=== PATIENT | male | born 1975 | race Caucasian/White ===

== ENCOUNTER 2019-10-07 16:33 | Inpatient (IN) ==
[2019-10-07] MEDS ORDERED: Piperacillin/Tazobactam 3.375 GM in Water for inj. (sterile) 20 ML IVP ONE (16:50)
[2019-10-07] MEDS ORDERED: 0.9 % Sodium Chloride 1,000 ML IVC ONE (16:50)
[2019-10-07] MEDS ORDERED: Morphine Sulfate 2 MG/ML SYRINGE IVP ONE (17:19)
[2019-10-07 17:20] LABS: Basophils # 0.1 K/mcL (0.0-0.2); Basophils % 0.7 %; Eosinophils # 0.2 K/mcL (0.0-0.6); Hematocrit 41.9 % (37.5-50.1); Hemoglobin 14.1 g/dL (12.9-16.9); Immature Granulocytes % 1.1 % (0-4); Lymphocytes # 2.1 K/mcL (0.6-4.6); Mean Corpuscular HGB Conc 33.7 g/dL (31.6-35.5); Mean Corpuscular Hemoglobin 28.3 pg (28.0-33.3); Mean Corpuscular Volume 84.1 fL (83.0-100.0); Mean Platelet Volume 10.5 fL (9.4-12.4); Monocytes # 0.9 K/mcL (0.0-1.3); Monocytes % 11.9 %; Neutrophils # 4.2 K/mcL (1.6-8.9); Platelet Count 248 K/mcL (140-400); Red Blood Count 4.98 M/mcL (4.19-5.50); Segmented Neutrophils % 55.3 %; White Blood Count 7.6 K/mcL (4.3-11.1)
[2019-10-07 17:23] LABS: INR 1.2
[2019-10-07 17:26] LABS: Activated Partial Thrombo Time 29.2 Seconds (26.0-36.0)
[2019-10-07 17:40] LABS: Alanine Aminotransferase 20 Units/L (7-52); Albumin 3.5 g/dL (3.5-5.7); Albumin/Globulin Ratio 1.3 (1.1-2.2); Alkaline Phosphatase 105 Units/L (34-104); Aspartate Amino Transferase 15 Units/L (13-39); BUN/Creatinine Ratio 17 (6-26); Bilirubin,Direct 0.1 mg/dL (0.0-0.2); Bilirubin,Indirect 0.5 mg/dL (0.0-1.0); Bilirubin,Total 0.6 mg/dL (0.3-1.0); Blood Urea Nitrogen 16 mg/dL (6-20); Calcium 8.5 mg/dL (8.6-10.3); Carbon Dioxide 22 mEq/L (23-29); Chloride 102 mEq/L (98-107); Globulin 2.6 g/dL (2.4-3.5); Glucose 512 mg/dL (70-105); Osmolality,Calculated 298 (280-300); Potassium 3.8 mEq/L (3.5-5.1); Sodium 132 mEq/L (136-145); Total Protein 6.1 g/dL (6.4-8.9); eGFR For African Americans > 60 (> 60); eGFR For Non-African Americans > 60 (> 60)
[2019-10-07] MEDS ORDERED: Insulin Human Regular 10 UNIT in 0.9 % Sodium Chloride 10 ML IV ONE (17:45)
[2019-10-07] MEDS ORDERED: Naloxone 0.4 MG/ML INJ IVP PRN ×2 (18:11→23:35)
[2019-10-07] MEDS ORDERED: Ondansetron 4 MG/2 ML VIAL IVP PRN ×2 (18:11→23:35)
[2019-10-07] MEDS ORDERED: Ringers Solution, Lactated 1,000 ML IVC SCH (18:15)
[2019-10-07] MEDS ORDERED: Dextrose Gel 15 GM/37.5 ML TUBE PO PRN ×2 (18:15→23:35)
[2019-10-07] MEDS ORDERED: D5% in Water 1,000 ML IVC PRN ×2 (18:15→23:35)
[2019-10-07] MEDS ORDERED: *HR* Dextrose 50 % in Water (Syg) 50 ML SYRINGE IVP PRN ×2 (18:15→23:35)
[2019-10-07] MEDS ORDERED: Insulin LISPRO 300 UNITS/3 ML VIAL SQ SCH (20:00)
[2019-10-07] MEDS ORDERED: *HR* Propofol 200 MG/20 ML VIAL IVP ONE (20:43)
[2019-10-07] MEDS ORDERED: *HR* FentaNYL (PF) 100 MCG/2 ML VIAL ONE (20:49)
[2019-10-07] MEDS ORDERED: Ondansetron 4 MG/2 ML VIAL ONE (20:50)
[2019-10-07] MEDS ORDERED: Lidocaine -MPF 2% 2 ML VIAL ONE (20:50)
[2019-10-07] MEDS ORDERED: Dexamethasone 4 MG/ML VIAL ONE (20:50)
[2019-10-07] MEDS ORDERED: Insulin DETEMIR 100 UNIT/ML X5UNITS SQ SCH (21:00)
[2019-10-07] MEDS ORDERED: *HR* OxyCODONE Immed Rel 5 MG TABLET PO PRN (21:15)
[2019-10-07] MEDS ORDERED: Ondansetron 4 MG/2 ML VIAL IVP ONE (21:15)
[2019-10-07] MEDS ORDERED: *HR* HYDROmorphone PF 0.5 MG/0.5 ML SYRINGE IVP PRN (21:15)
[2019-10-07] MEDS ORDERED: *HR* Labetalol 20 MG/4 ML SYRINGE IVP PRN (21:15)
[2019-10-07] MEDS ORDERED: Acetaminophen IV 1,000 MG/100 ML INFUS..BTL ONE (21:23)
[2019-10-07] MEDS ORDERED: Famotidine 20 MG/2 ML VIAL ONE (21:23)
[2019-10-07] MEDS ORDERED: Bupivacaine/EPI 1:200k 0.5%PF 30 ML VIAL ONE (21:43)
[2019-10-07] MEDS ORDERED: *HR* Succinylcholine 200 MG/10 ML VIAL IVP ONE (21:46)
[2019-10-07] MEDS ORDERED: Lidocaine HCL 4 ML Topical Solution (Laryng-O-Jet Kit Sterile Pak) TP ONE (21:47)
[2019-10-07] MEDS ORDERED: Ketorolac 30 MG/ML VIAL ONE (21:48)
[2019-10-07] MEDS ORDERED: *HR* Heparin 5,000 UNIT/ML VIAL SQ SCH (22:00)
[2019-10-08] MEDS ORDERED: Piperacillin/Tazobactam 3.375 GM in 0.9 % Sodium Chloride Mini Bag 100 ML IVPB SCH
[2019-10-08] MEDS: Insulin LISPRO 300 UNITS/3 ML VIAL SQ SCH ×6 (00:24→21:54)
[2019-10-08] MEDS: Piperacillin/Tazobactam 3.375 GM in 0.9 % Sodium Chloride Mini Bag 100 ML IVPB SCH ×3 (00:24→16:50)
[2019-10-08 03:00] LABS: Basophils % 0.4 %; Eosinophils # 0.1 K/mcL (0.0-0.6); Eosinophils % 0.7 %; Hematocrit 41.1 % (37.5-50.1); Hemoglobin 13.7 g/dL (12.9-16.9); Immature Granulocytes % 0.9 % (0-4); Lymphocytes # 1.2 K/mcL (0.6-4.6); Lymphocytes % 16.9 %; Mean Corpuscular HGB Conc 33.3 g/dL (31.6-35.5); Mean Corpuscular Hemoglobin 28.1 pg (28.0-33.3); Mean Corpuscular Volume 84.4 fL (83.0-100.0); Monocytes # 0.2 K/mcL (0.0-1.3); Monocytes % 3.4 %; Neutrophils # 5.5 K/mcL (1.6-8.9); Platelet Count 238 K/mcL (140-400); Red Blood Count 4.87 M/mcL (4.19-5.50); Segmented Neutrophils % 77.7 %
[2019-10-08 03:19] LABS: Alanine Aminotransferase 19 Units/L (7-52); Albumin 3.4 g/dL (3.5-5.7); Albumin/Globulin Ratio 1.3 (1.1-2.2); Alkaline Phosphatase 98 Units/L (34-104); Aspartate Amino Transferase 14 Units/L (13-39); BUN/Creatinine Ratio 16 (6-26); Bilirubin,Total 0.5 mg/dL (0.3-1.0); Blood Urea Nitrogen 16 mg/dL (6-20); Calcium 8.5 mg/dL (8.6-10.3); Carbon Dioxide 22 mEq/L (23-29); Chloride 107 mEq/L (98-107); Chol/HDL Ratio 5.4 (0-4.9); Cholesterol 129 mg/dL (< 200); Globulin 2.6 g/dL (2.4-3.5); Glucose 273 mg/dL (70-105); HDL Cholesterol 24 mg/dL (40-59); LDL Cholesterol,Calculated 68 mg/dL (0-99); Magnesium 1.8 mg/dL (1.6-2.6); Osmolality,Calculated 295 (280-300); Potassium 4.2 mEq/L (3.5-5.1); Sodium 137 mEq/L (136-145); Triglycerides 185 mg/dL (< 150); eGFR For African Americans > 60 (> 60); eGFR For Non-African Americans > 60 (> 60)
[2019-10-08 03:35] LABS: INR 1.2; Prothrombin Time 13.7 Seconds (9.4-12.1)
[2019-10-08] MEDS: Ringers Solution, Lactated 1,000 ML IVC SCH (03:49)
[2019-10-08] MEDS: *HR* Heparin 5,000 UNIT/ML VIAL SQ SCH ×3 (05:02→21:54)
[2019-10-08 08:56] LABS: Estimated Average Glucose 372 mg/dl
[2019-10-08] MEDS: OLANZapine 10 MG TAB.RAPDIS PO SCH ×2 (10:21→21:52)
[2019-10-08] MEDS: FLUoxetine 20 MG CAPSULE PO SCH (10:22)
[2019-10-08] MEDS: hydrOXYzine pamoate 25 MG CAPSULE PO SCH ×2 (14:50→21:51)
[2019-10-08] MEDS ORDERED: Insulin DETEMIR 100 UNIT/ML X5UNITS SQ SCH (21:00)
[2019-10-08] MEDS: Perphenazine 8 MG TABLET PO SCH (21:52)
[2019-10-08] MEDS: Insulin DETEMIR 100 UNIT/ML X5UNITS SQ SCH (21:55)
[2019-10-09] MEDS: Piperacillin/Tazobactam 3.375 GM in 0.9 % Sodium Chloride Mini Bag 100 ML IVPB SCH ×3 (00:34→16:06)
[2019-10-09] MEDS: *HR* Heparin 5,000 UNIT/ML VIAL SQ SCH ×3 (05:54→21:57)
[2019-10-09 07:01] LABS: Basophils % 0.5 %; Eosinophils # 0.1 K/mcL (0.0-0.6); Eosinophils % 1.6 %; Immature Granulocytes % 0.9 % (0-4); Lymphocytes # 2.2 K/mcL (0.6-4.6); Lymphocytes % 27.1 %; Mean Corpuscular HGB Conc 33.3 g/dL (31.6-35.5); Mean Corpuscular Hemoglobin 28.3 pg (28.0-33.3); Mean Corpuscular Volume 84.8 fL (83.0-100.0); Mean Platelet Volume 9.7 fL (9.4-12.4); Monocytes # 0.9 K/mcL (0.0-1.3); Monocytes % 10.6 %; Neutrophils # 4.8 K/mcL (1.6-8.9); Platelet Count 206 K/mcL (140-400); Segmented Neutrophils % 59.3 %; White Blood Count 8.1 K/mcL (4.3-11.1)
[2019-10-09 07:23] LABS: Calcium 8.5 mg/dL (8.6-10.3); Potassium 3.4 mEq/L (3.5-5.1)
[2019-10-09] MEDS: hydrOXYzine pamoate 25 MG CAPSULE PO SCH ×3 (08:06→20:46)
[2019-10-09] MEDS: OLANZapine 10 MG TAB.RAPDIS PO SCH ×2 (08:06→20:47)
[2019-10-09] MEDS: amLODIPine 5 MG TABLET PO SCH (08:06)
[2019-10-09] MEDS: FLUoxetine 20 MG CAPSULE PO SCH (08:06)
[2019-10-09] MEDS: Perphenazine 8 MG TABLET PO SCH ×2 (08:07→20:46)
[2019-10-09] MEDS: Insulin LISPRO 300 UNITS/3 ML VIAL SQ SCH ×4 (08:07→20:49)
[2019-10-09] MEDS ORDERED: D5% in Lactated Ringers 1,000 ML IVC SCH (08:15)
[2019-10-09] MEDS: 0.9 % Sodium Chloride 1,000 ML IVC SCH ×3 (09:54→21:58)
[2019-10-09] MEDS: Ringers Solution, Lactated 1,000 ML IVC SCH (11:21)
[2019-10-09] MEDS: Insulin DETEMIR 100 UNIT/ML X5UNITS SQ SCH (20:49)
[2019-10-10] MEDS: Piperacillin/Tazobactam 3.375 GM in 0.9 % Sodium Chloride Mini Bag 100 ML IVPB SCH ×4 (00:11→23:32)
[2019-10-10 03:15] LABS: Calcium 8.3 mg/dL (8.6-10.3); Potassium 3.5 mEq/L (3.5-5.1)
[2019-10-10] MEDS: 0.9 % Sodium Chloride 1,000 ML IVC SCH ×5 (03:50→23:30)
[2019-10-10] MEDS: *HR* Heparin 5,000 UNIT/ML VIAL SQ SCH ×3 (06:01→21:41)
[2019-10-10] MEDS: hydrOXYzine pamoate 25 MG CAPSULE PO SCH ×3 (07:57→21:40)
[2019-10-10] MEDS: amLODIPine 5 MG TABLET PO SCH (07:57)
[2019-10-10] MEDS: Perphenazine 8 MG TABLET PO SCH ×2 (07:57→21:41)
[2019-10-10] MEDS: FLUoxetine 20 MG CAPSULE PO SCH (07:57)
[2019-10-10] MEDS: OLANZapine 10 MG TAB.RAPDIS PO SCH ×2 (07:57→21:40)
[2019-10-10] MEDS: Insulin LISPRO 300 UNITS/3 ML VIAL SQ SCH ×4 (07:58→21:42)
[2019-10-10] MEDS ORDERED: Aminoglycoside Consult 1 EACH MC ONE (08:23)
[2019-10-10 14:40] LABS: Protein/Creatinine Ratio,Urine 0.53 mg/mg (0.00-0.20); Sodium, Urine 44.1 mEq/L
[2019-10-10 14:51] LABS: Bilirubin,Urine Negative (Negative); Blood,Urine Negative (Negative); Clarity,Urine Clear (Clear); Color,Urine Yellow (Yellow); Glucose,Urine (UA) Normal (Normal); Ketones,Urine Negative (Negative); Leukocyte Esterase,Urine Negative (Negative); Nitrite,Urine Negative (Negative); Protein,Urine Trace mg/dL (Neg-Trace); Specific Gravity,Urine 1.008 (1.010-1.025); Urobilinogen,Urine Normal (Normal)
[2019-10-10] MEDS: Insulin DETEMIR 100 UNIT/ML X5UNITS SQ SCH (21:41)
[2019-10-11 02:05] LABS: Albumin 2.8 g/dL (3.5-5.7); Phosphorous 6.8 mg/dL (2.7-4.5); Potassium 4.1 mEq/L (3.5-5.1)
[2019-10-11 02:07] LABS: Calcium 7.9 mg/dL (8.6-10.3); Potassium 4.1 mEq/L (3.5-5.1)
[2019-10-11] MEDS: 0.9 % Sodium Chloride 1,000 ML IVC SCH ×3 (06:08→20:08)
[2019-10-11] MEDS: *HR* Heparin 5,000 UNIT/ML VIAL SQ SCH ×3 (06:08→20:39)
[2019-10-11] MEDS: OLANZapine 10 MG TAB.RAPDIS PO SCH ×2 (08:44→20:39)
[2019-10-11] MEDS: hydrOXYzine pamoate 25 MG CAPSULE PO SCH ×3 (08:44→20:39)
[2019-10-11] MEDS: Piperacillin/Tazobactam 3.375 GM in 0.9 % Sodium Chloride Mini Bag 100 ML IVPB SCH (08:44)
[2019-10-11] MEDS: amLODIPine 5 MG TABLET PO SCH (08:44)
[2019-10-11] MEDS: FLUoxetine 20 MG CAPSULE PO SCH (08:44)
[2019-10-11] MEDS: Insulin LISPRO 300 UNITS/3 ML VIAL SQ SCH ×4 (08:46→20:40)
[2019-10-11] MEDS: Perphenazine 8 MG TABLET PO SCH ×2 (09:12→20:39)
[2019-10-11] MEDS: Insulin DETEMIR 100 UNIT/ML X5UNITS SQ SCH (20:38)
[2019-10-11] MEDS: Doxycycline 100 MG CAPSULE PO SCH (20:38)
[2019-10-11] MEDS: cephALEXin 250 MG CAPSULE PO SCH (20:38)
[2019-10-12] MEDS: 0.9 % Sodium Chloride 1,000 ML IVC SCH ×5 (00:42→21:02)
[2019-10-12] MEDS: Insulin LISPRO 300 UNITS/3 ML VIAL SQ SCH ×5 (01:24→21:00)
[2019-10-12] MEDS: *HR* Heparin 5,000 UNIT/ML VIAL SQ SCH ×3 (06:52→21:18)
[2019-10-12] MEDS: FLUoxetine 20 MG CAPSULE PO SCH (08:54)
[2019-10-12] MEDS: hydrOXYzine pamoate 25 MG CAPSULE PO SCH ×3 (08:54→21:17)
[2019-10-12] MEDS: Doxycycline 100 MG CAPSULE PO SCH ×2 (08:55→21:17)
[2019-10-12] MEDS: cephALEXin 250 MG CAPSULE PO SCH ×2 (08:55→21:18)
[2019-10-12] MEDS: amLODIPine 5 MG TABLET PO SCH (08:55)
[2019-10-12] MEDS: OLANZapine 10 MG TAB.RAPDIS PO SCH ×2 (08:55→21:17)
[2019-10-12] MEDS: Perphenazine 8 MG TABLET PO SCH ×2 (08:55→21:18)
[2019-10-12 16:57] LABS: Calcium 8.3 mg/dL (8.6-10.3); Potassium 4.3 mEq/L (3.5-5.1)
[2019-10-12] MEDS: Insulin DETEMIR 100 UNIT/ML X5UNITS SQ SCH (21:19)
[2019-10-13] MEDS: 0.9 % Sodium Chloride 1,000 ML IVC SCH ×4 (00:57→20:52)
[2019-10-13] MEDS: *HR* Heparin 5,000 UNIT/ML VIAL SQ SCH ×3 (05:12→20:50)
[2019-10-13 05:36] LABS: Hematocrit 36.3 % (37.5-50.1); Hemoglobin 11.8 g/dL (12.9-16.9); Mean Corpuscular HGB Conc 32.5 g/dL (31.6-35.5); Mean Corpuscular Hemoglobin 28.1 pg (28.0-33.3); Mean Corpuscular Volume 86.4 fL (83.0-100.0); Mean Platelet Volume 9.5 fL (9.4-12.4); Platelet Count 214 K/mcL (140-400); Red Cell Distribution Width 12.4 % (11.5-14.5); White Blood Count 6.8 K/mcL (4.3-11.1)
[2019-10-13 05:55] LABS: Calcium 7.9 mg/dL (8.6-10.3); Potassium 4.1 mEq/L (3.5-5.1)
[2019-10-13] MEDS: Insulin LISPRO 300 UNITS/3 ML VIAL SQ SCH ×4 (07:35→21:58)
[2019-10-13] MEDS: hydrOXYzine pamoate 25 MG CAPSULE PO SCH ×3 (08:53→20:50)
[2019-10-13] MEDS: amLODIPine 5 MG TABLET PO SCH (08:54)
[2019-10-13] MEDS: Doxycycline 100 MG CAPSULE PO SCH ×2 (08:54→20:50)
[2019-10-13] MEDS: OLANZapine 10 MG TAB.RAPDIS PO SCH ×2 (08:54→20:50)
[2019-10-13] MEDS: FLUoxetine 20 MG CAPSULE PO SCH (08:54)
[2019-10-13] MEDS: Perphenazine 8 MG TABLET PO SCH ×2 (08:54→20:49)
[2019-10-13] MEDS: cephALEXin 250 MG CAPSULE PO SCH ×2 (08:54→20:49)
[2019-10-13 11:53] LABS: VBG Ionized Calcium 1.15 mmol/L (1.15-1.35)
[2019-10-13] MEDS ORDERED: Sodium Bicarbonate 75 MEQ in 0.45 % Sodium Chloride 1,000 ML IVC SCH ×2 (16:00→16:45)
[2019-10-13] MEDS: Sodium Bicarbonate 75 MEQ in 0.45 % Sodium Chloride 1,000 ML IVC SCH (17:19)
[2019-10-13] MEDS: Insulin DETEMIR 100 UNIT/ML X5UNITS SQ SCH (20:51)
[2019-10-14 01:39] LABS: Beta Globulin (PEP) 0.67 g/dL (0.48-1.10)
[2019-10-14] MEDS: Sodium Bicarbonate 75 MEQ in 0.45 % Sodium Chloride 1,000 ML IVC SCH (03:41)
[2019-10-14] MEDS: 0.9 % Sodium Chloride 1,000 ML IVC SCH ×2 (03:42→18:04)
[2019-10-14 04:47] LABS: Basophils % 0.6 %; Eosinophils # 0.2 K/mcL (0.0-0.6); Eosinophils % 3.5 %; Hematocrit 36.8 % (37.5-50.1); Hemoglobin 11.9 g/dL (12.9-16.9); Immature Granulocytes % 1.5 % (0-4); Lymphocytes # 1.6 K/mcL (0.6-4.6); Lymphocytes % 24.3 %; Mean Corpuscular HGB Conc 32.3 g/dL (31.6-35.5); Mean Corpuscular Hemoglobin 28.3 pg (28.0-33.3); Mean Corpuscular Volume 87.4 fL (83.0-100.0); Mean Platelet Volume 9.5 fL (9.4-12.4); Monocytes % 15.2 %; Neutrophils # 3.6 K/mcL (1.6-8.9); Platelet Count 207 K/mcL (140-400); Red Blood Count 4.21 M/mcL (4.19-5.50); Red Cell Distribution Width 12.2 % (11.5-14.5); Segmented Neutrophils % 54.9 %; White Blood Count 6.6 K/mcL (4.3-11.1)
[2019-10-14 05:04] LABS: Calcium 7.9 mg/dL (8.6-10.3); Potassium 4.3 mEq/L (3.5-5.1)
[2019-10-14] MEDS: *HR* Heparin 5,000 UNIT/ML VIAL SQ SCH ×3 (06:27→21:01)
[2019-10-14 07:47] LABS: IFE Reflexed NOT DONE
[2019-10-14] MEDS: Insulin LISPRO 300 UNITS/3 ML VIAL SQ SCH ×4 (08:24→20:16)
[2019-10-14] MEDS: Doxycycline 100 MG CAPSULE PO SCH ×2 (08:30→21:02)
[2019-10-14] MEDS: Perphenazine 8 MG TABLET PO SCH ×2 (08:30→21:01)
[2019-10-14] MEDS: amLODIPine 5 MG TABLET PO SCH (08:30)
[2019-10-14] MEDS: cephALEXin 250 MG CAPSULE PO SCH (08:30)
[2019-10-14] MEDS: hydrOXYzine pamoate 25 MG CAPSULE PO SCH ×3 (08:30→21:01)
[2019-10-14] MEDS: FLUoxetine 20 MG CAPSULE PO SCH (08:30)
[2019-10-14] MEDS: OLANZapine 10 MG TAB.RAPDIS PO SCH ×2 (08:31→21:01)
[2019-10-14] MEDS: Insulin DETEMIR 100 UNIT/ML X5UNITS SQ SCH (21:00)
[2019-10-15] MEDS: 0.9 % Sodium Chloride 1,000 ML IVC SCH ×6 (00:11→21:40)
[2019-10-15 04:37] LABS: Phosphorous 6.8 mg/dL (2.7-4.5)
[2019-10-15 04:38] LABS: Calcium 7.7 mg/dL (8.6-10.3); Potassium 4.3 mEq/L (3.5-5.1)
[2019-10-15] MEDS: *HR* Heparin 5,000 UNIT/ML VIAL SQ SCH ×3 (05:21→21:14)
[2019-10-15] MEDS: hydrOXYzine pamoate 25 MG CAPSULE PO SCH ×3 (07:55→21:06)
[2019-10-15] MEDS: Perphenazine 8 MG TABLET PO SCH ×2 (07:56→21:07)
[2019-10-15] MEDS: Insulin LISPRO 300 UNITS/3 ML VIAL SQ SCH ×5 (07:56→21:14)
[2019-10-15] MEDS: amLODIPine 5 MG TABLET PO SCH (07:56)
[2019-10-15] MEDS: FLUoxetine 20 MG CAPSULE PO SCH (07:56)
[2019-10-15] MEDS: OLANZapine 10 MG TAB.RAPDIS PO SCH ×2 (07:56→21:06)
[2019-10-15] MEDS: Doxycycline 100 MG CAPSULE PO SCH ×2 (07:56→21:04)
[2019-10-15] MEDS ORDERED: 0.9 % Sodium Chloride 250 ML IVC PRN (08:04)
[2019-10-15] MEDS ORDERED: 0.9 % Sodium Chloride 1,000 ML PRIME SCH (08:15)
[2019-10-15 08:55] LABS: Hepatitis B Surface Antibody < 3.10 mIU/mL
[2019-10-15] MEDS ORDERED: cephALEXin 250 MG CAPSULE PO SCH (09:00)
[2019-10-15 09:04] LABS: Hepatitis B Surface Antigen Nonreactive (Nonreactive)
[2019-10-15] MEDS ORDERED: *HR* Heparin 5,000 UNIT/ML VIAL ONE (10:55)
[2019-10-15] MEDS: cephALEXin 250 MG CAPSULE PO SCH (18:06)
[2019-10-15] MEDS: Insulin DETEMIR 100 UNIT/ML X5UNITS SQ SCH (21:13)
[2019-10-16] MEDS: 0.9 % Sodium Chloride 1,000 ML IVC SCH ×2 (03:30→09:47)
[2019-10-16] MEDS: *HR* Heparin 5,000 UNIT/ML VIAL SQ SCH ×3 (05:48→21:28)
[2019-10-16] MEDS ORDERED: 0.9 % Sodium Chloride 250 ML IVC PRN (06:54)
[2019-10-16 08:37] LABS: Hematocrit 34.9 % (37.5-50.1); Hemoglobin 11.4 g/dL (12.9-16.9); Mean Corpuscular HGB Conc 32.7 g/dL (31.6-35.5); Mean Corpuscular Hemoglobin 28.6 pg (28.0-33.3); Mean Corpuscular Volume 87.5 fL (83.0-100.0); Platelet Count 183 K/mcL (140-400); Red Blood Count 3.99 M/mcL (4.19-5.50); Red Cell Distribution Width 12.3 % (11.5-14.5)
[2019-10-16 08:59] LABS: Calcium 7.7 mg/dL (8.6-10.3); Potassium 4.3 mEq/L (3.5-5.1)
[2019-10-16] MEDS: Doxycycline 100 MG CAPSULE PO SCH ×2 (09:43→21:24)
[2019-10-16] MEDS: OLANZapine 10 MG TAB.RAPDIS PO SCH ×3 (09:43→21:28)
[2019-10-16] MEDS: hydrOXYzine pamoate 25 MG CAPSULE PO SCH ×3 (09:44→21:27)
[2019-10-16] MEDS: FLUoxetine 20 MG CAPSULE PO SCH (09:44)
[2019-10-16] MEDS: Perphenazine 8 MG TABLET PO SCH ×2 (09:59→21:27)
[2019-10-16] MEDS: Insulin LISPRO 300 UNITS/3 ML VIAL SQ SCH ×3 (11:54→21:24)
[2019-10-16] MEDS: amLODIPine 5 MG TABLET PO SCH (15:57)
[2019-10-16] MEDS: *HR* HYDROcodone/Acet 5/325 mg TABLET PO PRN (15:57)
[2019-10-16] MEDS: cephALEXin 250 MG CAPSULE PO SCH (16:49)
[2019-10-16] MEDS: Insulin DETEMIR 100 UNIT/ML X5UNITS SQ SCH (21:25)
[2019-10-16] MEDS: Acetaminophen 325 MG TABLET PO PRN (22:10)
[2019-10-17 05:12] LABS: Hematocrit 30.8 % (37.5-50.1); Hemoglobin 10.3 g/dL (12.9-16.9); Mean Corpuscular HGB Conc 33.4 g/dL (31.6-35.5); Mean Corpuscular Hemoglobin 28.9 pg (28.0-33.3); Mean Corpuscular Volume 86.5 fL (83.0-100.0); Mean Platelet Volume 9.4 fL (9.4-12.4); Platelet Count 153 K/mcL (140-400); Red Blood Count 3.56 M/mcL (4.19-5.50); Red Cell Distribution Width 12.2 % (11.5-14.5); White Blood Count 6.2 K/mcL (4.3-11.1)
[2019-10-17 05:32] LABS: Calcium 7.5 mg/dL (8.6-10.3); Potassium 3.8 mEq/L (3.5-5.1)
[2019-10-17] MEDS: *HR* Heparin 5,000 UNIT/ML VIAL SQ SCH ×3 (06:41→20:59)
[2019-10-17] MEDS: amLODIPine 5 MG TABLET PO SCH (08:15)
[2019-10-17] MEDS: OLANZapine 10 MG TAB.RAPDIS PO SCH ×2 (08:15→20:59)
[2019-10-17] MEDS: FLUoxetine 20 MG CAPSULE PO SCH (08:15)
[2019-10-17] MEDS: Perphenazine 8 MG TABLET PO SCH ×2 (08:15→20:59)
[2019-10-17] MEDS: hydrOXYzine pamoate 25 MG CAPSULE PO SCH ×3 (08:15→20:58)
[2019-10-17] MEDS: Doxycycline 100 MG CAPSULE PO SCH ×2 (08:15→20:58)
[2019-10-17] MEDS: Insulin LISPRO 300 UNITS/3 ML VIAL SQ SCH ×4 (08:16→20:57)
[2019-10-17] MEDS: *HR* HYDROcodone/Acet 5/325 mg TABLET PO PRN (15:30)
[2019-10-17] MEDS: cephALEXin 250 MG CAPSULE PO SCH (16:34)
[2019-10-17] MEDS: Insulin DETEMIR 100 UNIT/ML X5UNITS SQ SCH (20:57)
[2019-10-18 04:06] LABS: Calcium 7.7 mg/dL (8.6-10.3); Potassium 3.8 mEq/L (3.5-5.1)
[2019-10-18] MEDS: *HR* Heparin 5,000 UNIT/ML VIAL SQ SCH ×3 (05:22→20:28)
[2019-10-18] MEDS ORDERED: 0.9 % Sodium Chloride 250 ML IVC PRN (07:28)
[2019-10-18] MEDS ORDERED: 0.9 % Sodium Chloride 1,000 ML PRIME SCH (07:30)
[2019-10-18] MEDS: Insulin LISPRO 300 UNITS/3 ML VIAL SQ SCH ×4 (08:02→20:18)
[2019-10-18] MEDS: OLANZapine 10 MG TAB.RAPDIS PO SCH ×2 (08:04→20:28)
[2019-10-18] MEDS: Doxycycline 100 MG CAPSULE PO SCH ×2 (08:04→20:28)
[2019-10-18] MEDS: hydrOXYzine pamoate 25 MG CAPSULE PO SCH ×3 (08:05→20:27)
[2019-10-18] MEDS: Perphenazine 8 MG TABLET PO SCH ×2 (08:05→20:28)
[2019-10-18] MEDS: amLODIPine 5 MG TABLET PO SCH (08:06)
[2019-10-18] MEDS: FLUoxetine 20 MG CAPSULE PO SCH (08:09)
[2019-10-18] MEDS: cephALEXin 250 MG CAPSULE PO SCH (17:30)
[2019-10-18] MEDS: Acetaminophen 325 MG TABLET PO PRN (17:33)
[2019-10-18] MEDS: *HR* HYDROcodone/Acet 5/325 mg TABLET PO PRN (20:27)
[2019-10-18] MEDS: Insulin DETEMIR 100 UNIT/ML X5UNITS SQ SCH (20:28)
[2019-10-19 05:09] LABS: Calcium 7.9 mg/dL (8.6-10.3); Potassium 3.6 mEq/L (3.5-5.1)
[2019-10-19] MEDS: *HR* Heparin 5,000 UNIT/ML VIAL SQ SCH ×3 (05:43→20:25)
[2019-10-19] MEDS: Doxycycline 100 MG CAPSULE PO SCH ×2 (07:23→20:24)
[2019-10-19] MEDS: hydrOXYzine pamoate 25 MG CAPSULE PO SCH ×3 (07:23→20:25)
[2019-10-19] MEDS: OLANZapine 10 MG TAB.RAPDIS PO SCH ×2 (07:24→20:25)
[2019-10-19] MEDS: Perphenazine 8 MG TABLET PO SCH ×2 (07:24→20:25)
[2019-10-19] MEDS: amLODIPine 5 MG TABLET PO SCH (07:24)
[2019-10-19] MEDS: FLUoxetine 20 MG CAPSULE PO SCH (07:24)
[2019-10-19] MEDS: Insulin LISPRO 300 UNITS/3 ML VIAL SQ SCH ×4 (07:47→20:26)
[2019-10-19] MEDS ORDERED: Lidocaine/EPI 1:100k 1% 50 ML VIAL ONE (09:46)
[2019-10-19] MEDS ORDERED: Heparin 1,000 UNITS/500 mL 500 ML ONE (09:46)
[2019-10-19] MEDS ORDERED: 0.9 % Sodium Chloride 500 ML ONE (09:47)
[2019-10-19] MEDS ORDERED: *HR* Midazolam HCl 2 MG/2 ML VIAL IVP ONE (10:15)
[2019-10-19] MEDS ORDERED: *HR* FentaNYL (PF) 100 MCG/2 ML VIAL IVP ONE (10:15)
[2019-10-19] MEDS ORDERED: *HR* Heparin 5,000 UNIT/ML VIAL ONE (10:42)
[2019-10-19] MEDS: cephALEXin 250 MG CAPSULE PO SCH (18:01)
[2019-10-19] MEDS: *HR* HYDROcodone/Acet 5/325 mg TABLET PO PRN (18:04)
[2019-10-19] MEDS: Insulin DETEMIR 100 UNIT/ML X5UNITS SQ SCH (20:26)
[2019-10-20 03:39] LABS: Basophils # 0.1 K/mcL (0.0-0.2); Basophils % 0.6 %; Eosinophils # 0.2 K/mcL (0.0-0.6); Eosinophils % 2.1 %; Hematocrit 30.5 % (37.5-50.1); Hemoglobin 10.1 g/dL (12.9-16.9); Immature Granulocytes % 0.4 % (0-4); Lymphocytes # 1.7 K/mcL (0.6-4.6); Lymphocytes % 21.4 %; Mean Corpuscular HGB Conc 33.1 g/dL (31.6-35.5); Mean Corpuscular Hemoglobin 28.8 pg (28.0-33.3); Mean Corpuscular Volume 86.9 fL (83.0-100.0); Mean Platelet Volume 9.2 fL (9.4-12.4); Monocytes # 0.9 K/mcL (0.0-1.3); Monocytes % 11.6 %; Platelet Count 168 K/mcL (140-400); Red Blood Count 3.51 M/mcL (4.19-5.50); Red Cell Distribution Width 12.5 % (11.5-14.5); Segmented Neutrophils % 63.9 %; White Blood Count 7.8 K/mcL (4.3-11.1)
[2019-10-20 04:00] LABS: Calcium 7.7 mg/dL (8.6-10.3); Potassium 3.7 mEq/L (3.5-5.1)
[2019-10-20] MEDS: *HR* Heparin 5,000 UNIT/ML VIAL SQ SCH ×3 (05:23→21:18)
[2019-10-20] MEDS ORDERED: 0.9 % Sodium Chloride 250 ML IVC PRN (07:35)
[2019-10-20] MEDS: Insulin LISPRO 300 UNITS/3 ML VIAL SQ SCH ×4 (08:09→21:09)
[2019-10-20] MEDS ORDERED: *HR* Heparin 10,000 UNIT/10 ML VIAL IV PRN (10:48)
[2019-10-20] MEDS: Doxycycline 100 MG CAPSULE PO SCH (13:14)
[2019-10-20] MEDS: FLUoxetine 20 MG CAPSULE PO SCH (13:14)
[2019-10-20] MEDS: hydrOXYzine pamoate 25 MG CAPSULE PO SCH ×3 (13:15→21:17)
[2019-10-20] MEDS: *HR* HYDROcodone/Acet 5/325 mg TABLET PO PRN ×2 (13:15→21:20)
[2019-10-20] MEDS: Perphenazine 8 MG TABLET PO SCH ×2 (13:15→21:17)
[2019-10-20] MEDS: amLODIPine 5 MG TABLET PO SCH (13:15)
[2019-10-20] MEDS: OLANZapine 10 MG TAB.RAPDIS PO SCH ×2 (13:15→21:17)
[2019-10-20] MEDS: Insulin DETEMIR 100 UNIT/ML X5UNITS SQ SCH (21:18)
[2019-10-21 05:48] LABS: Calcium 7.8 mg/dL (8.6-10.3); Potassium 3.5 mEq/L (3.5-5.1)
[2019-10-21] MEDS: *HR* Heparin 5,000 UNIT/ML VIAL SQ SCH ×2 (06:19→13:44)
[2019-10-21] MEDS: Insulin LISPRO 300 UNITS/3 ML VIAL SQ SCH ×4 (07:25→20:44)
[2019-10-21] MEDS: amLODIPine 5 MG TABLET PO SCH (07:26)
[2019-10-21] MEDS: Perphenazine 8 MG TABLET PO SCH ×2 (07:27→20:44)
[2019-10-21] MEDS: OLANZapine 10 MG TAB.RAPDIS PO SCH ×2 (07:27→20:44)
[2019-10-21] MEDS: FLUoxetine 20 MG CAPSULE PO SCH (07:27)
[2019-10-21] MEDS: hydrOXYzine pamoate 25 MG CAPSULE PO SCH ×3 (07:27→20:44)
[2019-10-21] MEDS: Acetaminophen 325 MG TABLET PO PRN (14:03)
[2019-10-21] MEDS: *HR* HYDROcodone/Acet 5/325 mg TABLET PO PRN (16:34)
[2019-10-21] MEDS: Insulin DETEMIR 100 UNIT/ML X5UNITS SQ SCH (20:45)
[2019-10-22 03:50] LABS: Basophils % 0.4 %; Eosinophils # 0.2 K/mcL (0.0-0.6); Hematocrit 30.5 % (37.5-50.1); Hemoglobin 10.1 g/dL (12.9-16.9); Immature Granulocytes % 0.6 % (0-4); Lymphocytes # 1.4 K/mcL (0.6-4.6); Lymphocytes % 19.6 %; Mean Corpuscular HGB Conc 33.1 g/dL (31.6-35.5); Mean Corpuscular Hemoglobin 28.6 pg (28.0-33.3); Mean Corpuscular Volume 86.4 fL (83.0-100.0); Mean Platelet Volume 9.1 fL (9.4-12.4); Monocytes # 0.8 K/mcL (0.0-1.3); Monocytes % 11.9 %; Neutrophils # 4.5 K/mcL (1.6-8.9); Platelet Count 183 K/mcL (140-400); Red Blood Count 3.53 M/mcL (4.19-5.50); Red Cell Distribution Width 12.5 % (11.5-14.5); Segmented Neutrophils % 64.5 %
[2019-10-22 04:10] LABS: Calcium 7.5 mg/dL (8.6-10.3); Potassium 3.5 mEq/L (3.5-5.1)
[2019-10-22] MEDS ORDERED: 0.9 % Sodium Chloride 250 ML IVC PRN (06:45)
[2019-10-22] MEDS ORDERED: Amoxicillin/Clavulanate 500 MG TABLET PO SCH (09:00)
[2019-10-22] MEDS ORDERED: *HR* Heparin 10,000 UNIT/10 ML VIAL IV PRN (10:19)
[2019-10-22] MEDS: Insulin LISPRO 300 UNITS/3 ML VIAL SQ SCH ×2 (12:19→12:54)
[2019-10-22] MEDS: hydrOXYzine pamoate 25 MG CAPSULE PO SCH ×2 (12:22→14:31)
[2019-10-22] MEDS: *HR* HYDROcodone/Acet 5/325 mg TABLET PO PRN (12:25)
[2019-10-22] MEDS: Perphenazine 8 MG TABLET PO SCH (12:25)
[2019-10-22] MEDS: OLANZapine 10 MG TAB.RAPDIS PO SCH (12:26)
[2019-10-22] MEDS: FLUoxetine 20 MG CAPSULE PO SCH (12:26)
[2019-10-22] MEDS: amLODIPine 5 MG TABLET PO SCH (12:26)
[2019-10-22 15:10] VITALS: BP 147/84
== END 2019-10-22 16:12 | disposition home health service (06) | DRG 570 ==
LOC: EMEROOARM 16:33 → 3ANU 16:33 → SUATTDRO 19:22 → 3ANU 20:00 → SUATTDRO 10-10 14:02
PROVIDERS: ADMIT Internal Medicine; ATTEND Internal Medicine
PROC: IRPERMA (2019-10-19 13:00)